=== PATIENT | male | born 1960 | race Caucasian/White ===

== ENCOUNTER 2020-07-22 11:23 | Emergency (ER) | payer OTHER ==
[~2020-07-22] VITALS: Ht 177.8 cm; Wt 90.7 kg
[~2020-07-22 11:23] MED LIST: MULTI-VITAMIN1 EACH PO
[2020-07-22] MEDS ORDERED: KETOROLAC TROMETHAMINE 30 MG/ML VIAL IV STA (11:37)
[2020-07-22] MEDS ORDERED: HYDROCODONE/APAP 5MG-325MG TAB PO ONE (11:45)
[2020-07-22] MEDS ORDERED: CYCLOBENZAPRINE HCL 10 MG TAB PO ONE (11:45)
[2020-07-22] MEDS ORDERED: DEXAMETHASONE SOD PHOS 10 MG/1 ML VIAL IV ONE (11:45)
[2020-07-22] MEDS ORDERED: DEXAMETHASONE SOD PHOS INJ 4 MG/ML VIAL ONE (11:56)
[2020-07-22] MEDS ORDERED: FENTANYL CITRATE/PF 100MCG/2 ML INJ IV ONE (14:00)
[2020-07-22] MEDS ORDERED: FENTANYL CITRATE/PF 100MCG/2 ML INJ ONE (14:09)
[2020-07-22] MEDS ORDERED: CYCLOBENZAPRINE5 MG PO (14:25)
[2020-07-22] MEDS ORDERED: PREDNISONE20 MG PO (14:25)
[2020-07-22 15:02] VITALS: BP 147/84
== END 2020-07-22 15:08 | disposition home or self-care (01) ==
LOC: FSED 11:40
DX: M48.56XA Collapsed vertebra, not elsewhere classified, lumbar region, initial encounter for fracture (principal)
CPT/HCPCS: 72131; 99283; J1100 ×2; J1885; J3010